=== PATIENT | male | born 1965 | race Caucasian/White ===

== ENCOUNTER → 2019-06-30 09:14 | Outpatient (BNVA) | payer BC, SELFPAY | PROVIDERS: Family Provider Nurse Practitioner Family; PCP Nurse Practitioner Family; Visit Provider Nurse Practitioner Family | DX: Z13.220 Encounter for screening for lipoid disorders (principal); H65.03 Acute serous otitis media, bilateral; K80.20 Calculus of gallbladder without cholecystitis without obstruction; M67.449 Ganglion, unspecified hand | CPT/HCPCS: 80053 ==

== ENCOUNTER → 2019-07-18 14:52 | Outpatient (BNVA) | payer BC, SELFPAY | PROVIDERS: Family Provider Nurse Practitioner Family; PCP Nurse Practitioner Family; Visit Provider Nurse Practitioner Family | DX: E78.2 Mixed hyperlipidemia (principal); R10.11 Right upper quadrant pain; R35.0 Frequency of micturition | CPT/HCPCS: 81003 ==

== ENCOUNTER → 2019-07-25 08:19 | Outpatient (BNVA) | payer BC, SELFPAY | PROVIDERS: Family Provider Nurse Practitioner Family; PCP Nurse Practitioner Family; Visit Provider Nurse Practitioner Family | DX: R10.9 Unspecified abdominal pain (principal); E78.2 Mixed hyperlipidemia | CPT/HCPCS: 80061; 80076 ==

== ENCOUNTER → 2021-07-15 08:59 | Outpatient (BNVA) | payer BC, SELFPAY | PROVIDERS: Family Provider Nurse Practitioner Family; PCP Nurse Practitioner Family; Visit Provider Nurse Practitioner Family | DX: Z20.822 Contact with and (suspected) exposure to COVID-19 (principal) | CPT/HCPCS: 87635 ==

== ENCOUNTER → 2021-10-06 10:10 | Outpatient (BNVA) | payer BC, SELFPAY | PROVIDERS: Family Provider Nurse Practitioner Family; PCP Nurse Practitioner Family; Visit Provider Nurse Practitioner Family | DX: R07.89 Other chest pain (principal); R53.83 Other fatigue; R05.3 Chronic cough | CPT/HCPCS: 80053; 84443; 85007; 85027 ==

== ENCOUNTER → 2021-11-10 11:29 | Outpatient (BNVA) | payer BC, SELFPAY | PROVIDERS: Family Provider Nurse Practitioner Family; PCP Nurse Practitioner Family; Visit Provider Nurse Practitioner Family | DX: D72.820 Lymphocytosis (symptomatic) (principal); R53.83 Other fatigue; E78.2 Mixed hyperlipidemia | CPT/HCPCS: 80053; 84443; 85025 ==

== ENCOUNTER 2021-12-03 07:11 | Day surgery (SDC) | payer BC, SELFPAY ==
[2021-12-01 13:49] VITALS: BMI 36.6
[2021-12-03 07:33] VITALS: BP 145/92; PULSE 93; RESP 18; TEMP 36.6; O2SAT 96
[2021-12-03] MEDS: sodium chloride 0.9% 1,000 ML 30 ML IV (07:43)
--- NOTE | 2021-12-03 08:25 | P.ANESASSM_ITS ---
Pre-Anesthetic Assessment Height/Weight: Height 1.83 m Weight 122.47 kg Temp Pulse Resp BP Pulse Ox 98 F 93 18 145/92 96 12/03/21 07:33 12/03/21 07:33 12/03/21 07:33 12/03/21 07:33 12/03/21 07:33 Preop Diagnosis: diagnostic Operation Date: 12/03/21 08:45 Proposed Procedures p Colonoscopy 90190/Z86.010(Not Applicable) - Mich Rodriguez MD Familial anesthetic complications: None Was Beta Rober taken within 24 hours: N/A Was Clonidine taken within 24 hours: N/A Last intake: Intake Last Liquid Date 12/02/21 Last Liquid Time 22:15 Last Solid Date 12/01/21 Last Solid Time 18:30 Social No alcohol and No tobacco Exam alert, oriented x 3, clear to auscultation bilaterally and regular rate & rhythm Airway Submandibular: within normal limits Cervical ROM: within normal limits Mallampati: Class II Dentition: chipped Comments: Comments: Missing several Metabolic Hyperlipidemia [facility] [place] Osteoarthritis/DJD Anesthetic Plan ASA status: 2 Anesthesia: MAC Medications/Allergies Home Medications Medication Instructions Recorded Confirmed Last Taken Type No Known Home Medications 10/06/21 12/01/21 Unknown History Allergies Allergy/AdvReac Type Severity Reaction Status Date / Time No Known Allergies Allergy Verified 11/18/21 08:06 Current Medications Generic Name Dose Route Start Last Admin Trade Name Freq PRN Reason Stop Dose Admin Sodium Chloride 1,000 mls @ 30 mls/hr 12/03/21 07:30 12/03/21 07:43 Sodium Chloride 0.9% IV 12/04/21 07:29 30 mls/hr .Q24H GADIEL Administration PFSH Anesthesia Medical History COVID-19 History of colon polyps Hyperlipemia, mixed Surgical History History of colonoscopy 6- 7 years ago History of tonsillectomy Family History Father Cancer Social History Smoking and tobacco status: never smoked Data Anesthesia Cardiac Studies: No Data to Display
--- NOTE | 2021-12-03 08:58 | W.PM.OPSFHP ---
Same Day Surgery H&P Indication for Procedure/HPI DATE OF PROCEDURE: December 03, 2021 CHIEF COMPLAINT/INDICATIONFOR SURGICAL PROCEDURE: colonoscopy for polyps PREOP DIAGNOSIS: diagnostic PLANNED PROCEDURE: Operation Date: 12/03/21 08:45 Proposed Procedures p Colonoscopy 37608/Z86.010(Not Applicable) - Mich Rodrigeuz MD Medications/Allergies* Home Medications Medication Instructions Recorded Confirmed Type No Known Home Medications 10/06/21 12/01/21 History Allergies/Adverse Reactions Allergy/AdvReac Type Severity Reaction Status Date / Time No Known Allergies Allergy Verified 11/18/21 08:06 Current Medications: Generic Name Dose Route Start Last Admin Trade Name Freq PRN Reason Stop Dose Admin Sodium Chloride 1,000 mls @ 30 mls/hr 12/03/21 07:30 12/03/21 07:43 Sodium Chloride 0.9% IV 12/04/21 07:29 30 mls/hr .Q24H GADIEL Administration Pertinent History/Comorbid Conditions* Medical History (Updated 11/18/21 @ 08:21 by ROSELIA Shultz) COVID-19 History of colon polyps Hyperlipemia, mixed Surgical History (Updated 11/03/21 @ 11:03 by Mich Rodriguez MD) History of colonoscopy 6- 7 years ago History of tonsillectomy Family History (Updated 06/29/19 @ 13:39 by Sandra Valencia LPN) Cancer Father Social History Smoking and tobacco status: never smoked Pertinent Exam Findings alert, oriented x 3 and regular rate & rhythm Recommendations Surgery/Procedure today Coding Level of Care Code Acute Sole Conforming Machine Operator for Jon Wells
[2021-12-03 09:27] VITALS: BP 120/81; PULSE 88; RESP 16; TEMP 36.2; O2SAT 90
[2021-12-03 09:38] VITALS: BP 91/73; PULSE 81; RESP 18; O2SAT 95
--- NOTE | 2021-12-03 14:21 | ANE.PACU2 ---
Inpatient post-anesthesia follow up: Airway intact: Yes Vital signs: Temperature 97.1 F Pulse Rate 81 Respiratory Rate 18 Blood Pressure 91/73 Pulse Oximetry 95 Oxygen Delivery Me thod Room Air Oxygen Flow Rate Fraction of Inspir ed Oxygen Hydration adequate: Yes Nausea and vomiting: No Pain level: 1 Mental status: Baseline
== END 2021-12-03 09:56 | disposition home or self-care (01) ==
PROVIDERS: PCP Nurse Practitioner Family; Visit Provider Surgery
PROC: 0DJD8ZZ Inspection of Lower Intestinal Tract, Via Natural or Artificial Opening Endoscopic (ICD-10-PCS; CPT 45378; principal; 2021-12-03 08:45)
DX: D12.2 Benign neoplasm of ascending colon (principal); D12.4 Benign neoplasm of descending colon; K57.30 Diverticulosis of large intestine without perforation or abscess without bleeding; K64.8 Other hemorrhoids; Z86.010 Personal history of colon polyps; Z86.16 Personal history of COVID-19; E78.2 Mixed hyperlipidemia
CPT/HCPCS: 45380; 88305; J2704; J7030

== ENCOUNTER 2022-01-12 12:56 | Oncology outpatient (recurring) (ONCR) | payer BC, SELFPAY ==
[2022-01-12 13:49] LABS: Basophils % 0.5 %; Eosinophils # 0.3 10^3/uL (0.0-0.8); Eosinophils % 4.5 %; Hematocrit 51.6 % (42.0-52.0); Hemoglobin 17.3 g/dL (11.7-16.6); Lymphocytes # 1.9 10^3/uL (0.8-4.8); Lymphocytes % 29.6 %; Mean Corpuscular HGB Conc 33.5 g/dL (30.0-36.0); Mean Corpuscular Hemoglobin 31.3 pg (28.0-34.0); Mean Corpuscular Volume 93.3 fl (80-94); Mean Platelet Volume 10.5 fL (7.4-10.4); Monocytes # 0.6 10^3/uL (0.2-0.9); Monocytes % 10.2 %; Neutrophils # 3.45 10^3/uL (1.8-7.7); Neutrophils % 54.7 %; Nucleated Red Blood Cells % 0 %; Platelet Count 214 10^3/cmm (130-400); Red Blood Count 5.53 10^6/uL (4.1-5.3); White Blood Count 6.3 10^3/uL (4.0-10.0)
== END 2022-01-18 23:59 | disposition home or self-care (01) ==
PROVIDERS: PCP Nurse Practitioner Family; Visit Provider Internal Medicine Hematology & Oncology
DX: D58.2 Other hemoglobinopathies (principal)
CPT/HCPCS: 85025

== ENCOUNTER 2022-02-16 11:40 | Outpatient (CLI) | payer BC, SELFPAY | END 2022-02-16 11:41 | disposition home or self-care (01) | LOC: SLEEP 02-17 10:59 | PROVIDERS: PCP Nurse Practitioner Family; Visit Provider Internal Medicine Hematology & Oncology | DX: D58.2 Other hemoglobinopathies (principal); R53.83 Other fatigue | CPT/HCPCS: G0399 ==

== ENCOUNTER 2022-03-09 11:43 | Oncology outpatient (recurring) (ONCR) | payer BC, SELFPAY | END 2022-03-20 23:59 | disposition home or self-care (01) | PROVIDERS: PCP Nurse Practitioner Family; Visit Provider Internal Medicine Hematology & Oncology | DX: D75.1 Secondary polycythemia (principal) | CPT/HCPCS: 36415; 85025 ==

== ENCOUNTER 2022-04-21 10:49 | Oncology outpatient (recurring) (ONCR) | payer BC, SELFPAY ==
[2022-04-21 11:18] LABS: Basophils # 0.1 10^3/uL (0.0-0.1); Basophils % 0.8 %; Eosinophils # 0.3 10^3/uL (0.0-0.8); Eosinophils % 3.4 %; Hematocrit 51.9 % (42.0-52.0); Hemoglobin 17.5 g/dL (11.7-16.6); Lymphocytes # 2.1 10^3/uL (0.8-4.8); Lymphocytes % 24.7 %; Mean Corpuscular HGB Conc 33.7 g/dL (30.0-36.0); Mean Corpuscular Hemoglobin 31.2 pg (28.0-34.0); Mean Corpuscular Volume 92.5 fl (80-94); Mean Platelet Volume 10.4 fL (7.4-10.4); Monocytes # 1.1 10^3/uL (0.2-0.9); Monocytes % 12.2 %; Neutrophils # 5.06 10^3/uL (1.8-7.7); Neutrophils % 58.4 %; Nucleated Red Blood Cells % 0 %; Platelet Count 216 10^3/cmm (130-400); Red Blood Count 5.61 10^6/uL (4.1-5.3); Red Cell Distribution Width 11.9 % (12.1-15.1); White Blood Count 8.6 10^3/uL (4.0-10.0)
== END 2022-05-20 23:59 | disposition home or self-care (01) ==
PROVIDERS: PCP Nurse Practitioner Family; Visit Provider Internal Medicine Hematology & Oncology
DX: D75.1 Secondary polycythemia (principal)
CPT/HCPCS: 85025

== ENCOUNTER 2022-06-19 08:30 | Oncology outpatient (recurring) (ONCR) | payer BC, SELFPAY ==
[2022-05-21 12:48] LABS: Basophils # 0.1 10^3/uL (0.0-0.1); Basophils % 0.6 %; Eosinophils # 0.3 10^3/uL (0.0-0.8); Eosinophils % 3.2 %; Hemoglobin 17.2 g/dL (11.7-16.6); Lymphocytes # 2.2 10^3/uL (0.8-4.8); Mean Corpuscular HGB Conc 33.7 g/dL (30.0-36.0); Mean Corpuscular Hemoglobin 31.3 pg (28.0-34.0); Mean Corpuscular Volume 92.9 fl (80-94); Mean Platelet Volume 10.3 fL (7.4-10.4); Monocytes % 12.8 %; Neutrophils # 4.34 10^3/uL (1.8-7.7); Nucleated Red Blood Cells % 0 %; Platelet Count 199 10^3/cmm (130-400); Red Blood Count 5.49 10^6/uL (4.1-5.3); Red Cell Distribution Width 11.8 % (12.1-15.1); White Blood Count 7.9 10^3/uL (4.0-10.0)
[2022-06-19 08:58] LABS: Basophils # 0.1 10^3/uL (0.0-0.1); Eosinophils # 0.5 10^3/uL (0.0-0.8); Eosinophils % 6.5 %; Hemoglobin 17.3 g/dL (11.7-16.6); Lymphocytes # 2.3 10^3/uL (0.8-4.8); Lymphocytes % 33.7 %; Mean Corpuscular HGB Conc 33.3 g/dL (30.0-36.0); Mean Corpuscular Hemoglobin 30.9 pg (28.0-34.0); Mean Platelet Volume 9.9 fL (7.4-10.4); Monocytes % 14.2 %; Neutrophils # 3.03 10^3/uL (1.8-7.7); Neutrophils % 44.2 %; Nucleated Red Blood Cells % 0 %; Platelet Count 216 10^3/cmm (130-400); Red Blood Count 5.59 10^6/uL (4.1-5.3); Red Cell Distribution Width 11.8 % (12.1-15.1); White Blood Count 6.9 10^3/uL (4.0-10.0)
[2022-07-03 00:04] LABS: CALR Exon 9 Mutation NOT DETECTED (NOT DETECTED); CSF3R Exon 14/17 Mutation NOT DETECTED (NOT DETECTED); JAK2 Exon 12 Mutation NOT DETECTED (NOT DETECTED); JAK2 V617 Block Specimen ID NG; JAK2 V617 Clinical Indication NG; JAK2 V617 Mutation NOT DETECTED (NOT DETECTED); JAK2 V617 Specimen Source NG; MPL Exon 12 Mutation NOT DETECTED (NOT DETECTED)
== END 2022-06-20 23:59 | disposition home or self-care (01) ==
PROVIDERS: PCP Nurse Practitioner Family; Visit Provider Internal Medicine Hematology & Oncology
DX: D75.1 Secondary polycythemia (principal)
CPT/HCPCS: 36415; 81219; 81270; 81339; 81403; 81479; 85025

== ENCOUNTER 2022-07-09 07:50 | Oncology outpatient (recurring) (ONCR) | payer BC, SELFPAY ==
[2022-07-09 08:10] LABS: Basophils # 0.1 10^3/uL (0.0-0.1); Basophils % 0.9 %; Eosinophils # 0.3 10^3/uL (0.0-0.8); Eosinophils % 4.9 %; Hematocrit 53.7 % (42.0-52.0); Hemoglobin 17.9 g/dL (11.7-16.6); Lymphocytes # 1.7 10^3/uL (0.8-4.8); Lymphocytes % 32.5 %; Mean Corpuscular HGB Conc 33.3 g/dL (30.0-36.0); Mean Corpuscular Hemoglobin 30.8 pg (28.0-34.0); Mean Corpuscular Volume 92.3 fl (80-94); Mean Platelet Volume 10.3 fL (7.4-10.4); Monocytes # 0.7 10^3/uL (0.2-0.9); Monocytes % 13.2 %; Neutrophils # 2.54 10^3/uL (1.8-7.7); Neutrophils % 48.1 %; Nucleated Red Blood Cells % 0 %; Platelet Count 211 10^3/cmm (130-400); Red Blood Count 5.82 10^6/uL (4.1-5.3); Red Cell Distribution Width 11.9 % (12.1-15.1); White Blood Count 5.3 10^3/uL (4.0-10.0)
== END 2022-07-21 23:59 | disposition home or self-care (01) ==
LOC: ONCMED 07:51
PROVIDERS: PCP Nurse Practitioner Family; Visit Provider Internal Medicine Hematology & Oncology
DX: D75.1 Secondary polycythemia (principal); G47.33 Obstructive sleep apnea (adult) (pediatric); Z86.16 Personal history of COVID-19; Z79.82 Long term (current) use of aspirin
CPT/HCPCS: 36415; 85025

== ENCOUNTER → 2023-03-30 09:40 | Outpatient (BNVA) | payer BC, SELFPAY | PROVIDERS: PCP Nurse Practitioner Family; Visit Provider Nurse Practitioner Family | DX: D75.1 Secondary polycythemia (principal); M25.50 Pain in unspecified joint; M79.673 Pain in unspecified foot | CPT/HCPCS: 80048; 84550; 85025; 85651; 86003; 86008; 86140 ==

== ENCOUNTER → 2024-04-04 08:52 | Outpatient (BNVA) | payer BC, SELFPAY | PROVIDERS: PCP Nurse Practitioner Family; Visit Provider Nurse Practitioner Family | DX: I10 Essential (primary) hypertension (principal); D75.1 Secondary polycythemia | CPT/HCPCS: 80053; 83550; 85025 ==

== ENCOUNTER 2024-06-19 11:50 | Inpatient (IN) | payer BC, SELFPAY ==
[2024-06-19] VITALS (18 sets, daily range): BP systolic 146–175; BP diastolic 82–99; PULSE 63–93; RESP 14–19; TEMP 36.6–36.7; O2SAT 92–96; BMI 35.9; BMI 36.6
--- NOTE | 2024-06-19 11:51 | XR_ITS ---
WS: [id number] Portable AP upright chest, 06/19/2024 Clinical Data: cp Comparison: None. Findings: No nodules, masses or effusions are seen. The heart is normal. The pulmonary vascularity is not increased. No pneumonia or pneumothorax is seen. The aortic arch and descending thoracic aorta a re tortuous. Monitor leads are on the chest wall. XR/XR chest 1V portable [id number] Impression: Atherosclerosis.
--- NOTE | 2024-06-19 11:53 | ECG_ITS ---
[facility] Test Date: 2024-06-19 Pat Name: Ramona Gee Department: Room: Gender: Male Speech Pathology Assistant: : 1965 Requested By: Jose Luis Raya Order Number: [id number] Nalini MD: Mynor Pagan M.D. Measurements Intervals [place] Rate: 87 P: 57 WI: 182 QRS: 41 QRSD: 94 T: 15 QT: 322 QTc: 388 Interpretive Statements SINUS RHYTHM No previous ECG available for comparison Electronically Signed On 06-19-2024 16:34:30 HEALTHCARE SCIENCE SPECIALIST by Mynor Pagan M.D. [id number] f
--- NOTE | 2024-06-19 11:54 | W.ED.CHESTPA ---
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 Denies any history of heart disease Associated symptoms: Reports nausea; Deny abdominal pain, dyspnea, fever(s) or vomiting Related Data Home Medications Medication Instructions Recorded Confirmed acetaminophen 325 mg tablet 325 mg PO QID PRN Pain 04/21/22 06/19/24 (Tylenol) ibuprofen 200 mg tablet 200 mg PO Q6H PRN Pain 04/21/22 06/19/24 Allergies Allergy/AdvReac Type Severity Reaction Status Date / Time No Known Allergies Allergy Verified 03/30/23 09:23 Review of Systems Const: Denies: fever(s), chills, body aches or change in appetite ENMT: Denies: throat pain or dental pain Card: Reports: chest pain Resp: Denies: dyspnea GI: Reports: nausea; Denies: abdominal pain, vomiting or diarrhea Musc: Denies: neck pain or back pain Skin/Breast: Denies: rash Neuro: Denies: headache(s) PFS ED PFSH: Medical History Polycythemia History of colon polyps COVID-19 Hyperlipemia, mixed Surgical History History of colonoscopy (12/03/21) 6- 7 years ago History of tonsillectomy Family History Father Cancer Lung disease Grandmother Hypertension Other Hyperlipidemia Denies family history of Diabetes CAD (coronary artery disease) Clotting disorder Dementia Psychiatric illness Chronic kidney disease (CKD) Suicide Anesthesia complication Bleeding disorder Stroke Social History Smoking and tobacco/nicotine status: never used tobacco/nicotine Alcohol intake: never Substance/Drug Use: never Adopted: No Lives independently: Yes Household members: spouse and children Housing: House Marital status: Physical Exam Const: COMMON NORMALS: patient oriented x3 HENMT: COMMON NORMALS: normocephalic and atraumatic HEAD & SCALP: normocephalic and atraumatic Eye: COMMON NORMALS: Equal, round and reactive pupils present and EOMs intact bilaterally PUPIL: Yes Equal, round and reactive pupils present Neck/C-Spine: COMMON NORMALS: full ROM and supple Chest: COMMONS NORMALS: normal inspection of the chest Resp: COMMON NORMALS: normal respiratory effort and clear to auscultation bilaterally AUSCULTATION: clear to auscultation bilaterally Cardio: COMMON NORMALS: regular rate, regular rhythm and No murmurs present (Cardio) RATE: regular rate RHYTHM: regular rhythm GI: COMMON NORMALS: Normal to inspection, nondistended, normoactive bowel sounds present, Soft to palpation, non-tender and no masses PALPATION: Yes Soft to palpation Extremity: COMMON NORMALS: normal to inspection and full ROM Neuro: COMMON NORMALS: patient oriented x3, moves all extremities and no focal motor deficits Psych: COMMON NORMALS: mental status grossly normal, Normal thought process present and cooperative THOUGHT PROCESS: Normal thought process present Skin: COMMON NORMALS: no rashes or lesions noted and no wounds GENERAL SKIN EXAM: no rashes or lesions noted Course Vital Signs: Vital signs: Vital Signs Temperature 97.8 F 06/19/24 11:51 Pulse Rate 82 06/19/24 14:15 Respiratory Rate 15 06/19/24 14:15 Blood Pressure 158/92 06/19/24 14:15 Pulse Oximetry 94 06/19/24 14:15 Oxygen Delivery Me thod Room Air 06/19/24 14:00 MDM - Chest Pain Medical Decision Making Patient presents here with chest pain does have an elevated 2-hour troponin consistent with NSTEMI EKG shows no ST elevation is had no pain here spoke to the hospitalist along with police shift commander will admit at this time Medical Records I reviewed the patient's medical records. Lab Data I reviewed the patient's lab results. 06/19/24 11:00 06/19/24 11:00 Radiology Impressions Chest X-Ray 06/19/24 11:51 Impression: Atherosclerosis. Laboratory Results WBC 6.89 10^3/uL (3.29-11.43) 06/19/24 11:00 RBC 5.73 10^6/uL (3.85-5.65) H 06/19/24 11:00 Hgb 17.50 g/dL (11.27-16.99) H 06/19/24 11:00 Hct 51.7 % (37-53) 06/19/24 11:00 MCV 90.2 fl (82-101) 06/19/24 11:00 MCH 30.5 pg (27-33) 06/19/24 11:00 MCHC 33.8 g/dL (30-55) 06/19/24 11:00 RDW 12.0 % (12.1-15.1) L 06/19/24 11:00 Plt Count 200 10^3/cmm (157-399) 06/19/24 11:00 MPV 10.8 fL (7.4-10.4) H 06/19/24 11:00 Neut % (Auto) 49.6 % 06/19/24 11:00 Lymph % (Auto) 33.7 % 06/19/24 11:00 [place] % (Auto) 13.2 % 06/19/24 11:00 Eos % (Auto) 3.0 % 06/19/24 11:00 Baso % (Auto) 0.4 % 06/19/24 11:00 Neut # (Auto) 3.41 10^3/uL (1.8-7.7) 06/19/24 11:00 Lymph # (Auto) 2.3 10^3/uL (0.8-4.8) 06/19/24 11:00 [place] # (Auto) 0.9 10^3/uL (0.2-0.9) 06/19/24 11:00 Eos # (Auto) 0.2 10^3/uL (0.0-0.8) 06/19/24 11:00 Baso # (Auto) 0.0 10^3/uL (0.0-0.1) 06/19/24 11:00 Nucleated RBC % (auto) 0 % 06/19/24 11:00 Nucleated RBCs # 0.0 /100WBC 06/19/24 11:00 Sodium 139 mmol/L (136-145) 06/19/24 11:00 Potassium 3.9 mmol/L (3.5-5.1) 06/19/24 11:00 Chloride 103 mmol/L (98-107) 06/19/24 11:00 Carbon Dioxide 22 mmol/L (22-29) 06/19/24 11:00 Anion Gap 17.9 (5-19) 06/19/24 11:00 BUN 13 mg/dL (6-20) 06/19/24 11:00 Creatinine 1.0 mg/dL (0.7-1.2) 06/19/24 11:00 GFR Calculation 76.5 mL/min (90-130) L 06/19/24 11:00 Glucose 124 mg/dL (65-115) H 06/19/24 11:00 Calculated Osmolality 290 mOsm/kg (285-295) 06/19/24 11:00 Calcium 9.6 mg/dL (8.5-10.5) 06/19/24 11:00 Total Bilirubin 0.6 mg/dL (0.15-1.2) 06/19/24 11:00 AST 41 U/L (0-40) H 06/19/24 11:00 ALT 57 U/L (0-41) H 06/19/24 11:00 Alkaline Phosphatase 90 U/L (40-130) 06/19/24 11:00 Troponin T Baseline 12 ng/L (0-15) 06/19/24 11:00 Troponin T 120 Minute 54.03 ng/L (0-15) H 06/19/24 13:15 Delta Troponin T 42.03 ABS# (0-10) H* 06/19/24 13:15 Total Protein 7.5 g/dL (6.6-8.7) 06/19/24 11:00 Albumin 4.5 g/dL (3.5-5.2) 06/19/24 11:00 Globulin 3.0 g/dL (1.3-4.6) 06/19/24 11:00 Lipase 17 U/L (13-60) 06/19/24 11:00 All radiology interpretation(s) finalized by discharge EKG Data EKG 1: I personally reviewed and interpreted this EKG as follows: EKG interpretation date: 06/19/24 EKG interpretation time: 11:53 Interpretation: nsr hr [address] elevation qrs 94 qtc 366 EKG 2: I personally reviewed and interpreted this EKG as follows: EKG interpretation date: 06/19/24 EKG interpretation time: 13:49 Interpretation: nsr hr [address] or t wave abnormalities qrs 93 qtc 381 Discharge Plan Discharge Patient Disposition: Admitted As Inpatient Clinical Impression: Non-ST elevation ND (NSTEMI) Condition: Stable Prescriptions: No Action acetaminophen [Tylenol] 325 mg tablet 325 mg PO QID PRN (Reason: Pain) ibuprofen 200 mg tablet 200 mg PO Q6H PRN (Reason: Pain) Referrals: Romana Shepherd FNP [Primary Care Provider] - Coding Level of Care Code ED Stock Digger for Jon Wells
[2024-06-19 12:05] LABS: Basophils % 0.4 %; Eosinophils # 0.2 10^3/uL (0.0-0.8); Hematocrit 51.7 % (37-53); Lymphocytes # 2.3 10^3/uL (0.8-4.8); Lymphocytes % 33.7 %; Mean Corpuscular HGB Conc 33.8 g/dL (30-55); Mean Corpuscular Hemoglobin 30.5 pg (27-33); Mean Corpuscular Volume 90.2 fl (82-101); Mean Platelet Volume 10.8 fL (7.4-10.4); Monocytes # 0.9 10^3/uL (0.2-0.9); Monocytes % 13.2 %; Neutrophils # 3.41 10^3/uL (1.8-7.7); Neutrophils % 49.6 %; Nucleated Red Blood Cells % 0 %; Platelet Count 200 10^3/cmm (157-399); Red Blood Count 5.73 10^6/uL (3.85-5.65); White Blood Count 6.89 10^3/uL (3.29-11.43)
--- NOTE | 2024-06-19 12:15 | PC.PHAR ---
Pt states he does not take any prescription medications, only the occasional otc pain relievers and maybe Tums.
[2024-06-19 12:25] LABS: Alanine Aminotransferase 57 U/L (0-41); Albumin Level 4.5 g/dL (3.5-5.2); Alkaline Phosphatase 90 U/L (40-130); Anion Gap 17.9 (5-19); Aspartate Amino Transferase 41 U/L (0-40); Blood Urea Nitrogen 13 mg/dL (6-20); Calcium 9.6 mg/dL (8.5-10.5); Carbon Dioxide 22 mmol/L (22-29); Chloride 103 mmol/L (98-107); Creatinine Clr Calc Pharmacy 106.4709; Glomerular Filtration Rate 76.5 mL/min (90-130); Glucose 124 mg/dL (65-115); Lipase 17 U/L (13-60); Osmolality Calculated 290 mOsm/kg (285-295); Potassium 3.9 mmol/L (3.5-5.1); Sodium 139 mmol/L (136-145); Total Bilirubin 0.6 mg/dL (0.15-1.2); Total Protein 7.5 g/dL (6.6-8.7); Troponin(5th) Baseline 12 ng/L (0-15)
[2024-06-19 13:40] LABS: Troponin 5 2HR 54.03 ng/L (0-15)
[2024-06-19 13:47] LABS: Troponin 5 2HR Delta 42.03 ABS# (0-10)
--- NOTE | 2024-06-19 13:49 | ECG_ITS ---
[facility] Pat Name: Ramona Gee Department: Room: Gender: Male Mail Order Biller: : 1965 Requested By: Jose Luis Raya Order Number: [id number] Nalini MD: Mynor Pagan M.D. Measurements Intervals [place] Rate: 81 P: 49 SD: 187 QRS: 26 QRSD: 93 T: 29 QT: 344 QTc: 400 Interpretive Statements SINUS RHYTHM Compared to ECG 06/19/2024 11:53:14 No significant changes Electronically Signed On 06-19-2024 16:50:45 ENDODONTICS DENTIST by Mynor Pagan M.D. [id number]
[2024-06-19] MEDS: enoxaparin 120 mg/0.8 mL Syringe SUBCUT (13:53)
--- NOTE | 2024-06-19 14:27 | PC.NURSE ---
Dr. Dorota olivered pt to have water.
[2024-06-19] MEDS: clopidogrel 300 mg Tablet PO (16:19)
--- NOTE | 2024-06-19 16:30 | USCV_ITS ---
Ramona Gee Age: 58 Gender: M : 1965 Exam Date: 06/19/2024 17:18 Ordering Phys: Terrie Sutherland MD Technologist: CT [place]am [place] [facility] [place] Indication: cp BP: 146 / 88 HR: 70 Rhythm: Sinus Technical Quality: Adequate MEASUREMENTS (Male / Female) Normal Values 2D ECHO LVOT Diameter 2.3 cm LV Ejection Fraction MOD 4C 51.6 % LV Ejection Fraction MOD 2C 58.4 % LV Ejection Fraction 2C AL 61.4 % LA Diameter 3.4 cm RA Systolic Volume 4C AL 47.0 ml RA Systolic Volume 4C MOD 44.0 ml LA Sys Volume AL 44.6 cm cubed LA Sys Volume Index AL 17.8 cm cubed/m squared Aorta at Sinotubular Diameter 2.9 cm M-MODE LA Ao Ratio MM 1.1 AV Cusp Separation MM 2.2 cm DOPPLER AV Peak Velocity 164.0 cm/s LVOT Peak Velocity 108.0 cm/s AV Area Cont Eq vti 3.2 cm squared AV Area Cont Eq pk 2.6 cm squared MV Peak Velocity 85.0 cm/s MV Area PHT 3.2 cm squared Mitral E to A Ratio 1.3 TR Peak Velocity 167.0 cm/s TR Peak Gradient 11.2 mmHg PV Peak Velocity 96.0 cm/s FINDINGS Left Ventricle Normal left ventricular size and systolic function, EF 55%. No regional wall motion abnormalities. Grade I/IV diastolic dysfunction (abnormal relaxation filling pattern), normal to mildly elevated filling pressures. Right Ventricle The right ventricle is normal in size and function. Right Atrium The right atrium is normal in size. Left Atrium The left atrium is normal in size. Mitral Valve No gross abnormalities noted Aortic Valve Thickened aortic valve. Trace aortic valve regurgitation. Tricuspid Valve Trace tricuspid valve regurgitation. Estimated pulmonary artery peak systolic pressure within normal limits Pulmonic Valve Pulmonic valve not well visualized. Pericardium Normal pericardium without effusion. Aorta Normal ascending aorta dimension. IVC Inferior vena cava not visualized. CONCLUSIONS Normal left ventricular size and systolic function, EF 55%. No regional wall motion abnormalities. Grade I/IV diastolic dysfunction (abnormal relaxation filling pattern), normal to mildly elevated filling pressures. Thickened aortic valve. Trace aortic valve regurgitation. Trace tricuspid valve regurgitation. Estimated pulmonary artery peak systolic pressure within normal limits There is no pericardial effusion. There are no intracardiac masses. No similar previous studies are available for comparison Dr Kathy Helton MD FACC (Electronically Signed) Final Date: 20 June 2024 00:59 S
--- NOTE | 2024-06-19 16:44 | P.CONIM_ITS ---
<Statement entered by Mynor Paagn M.D - 06/19/24 20:42> Patient was evaluated and cared for in conjunction with an advanced practice practitioner. I personally examined the patient and reviewed the chart and all pertinent data including imaging, telemetry, and laboratory results. I discussed the patient in detail with the advanced practice practitioner. Please see their note for complete consult note, results and agreed upon plan of care for the patient. Briefly patient has presented with typical severe chest pain symptoms and has significant troponin elevation consistent with NSTEMI. Currently chest pain free. EKG not showing acute st t wave changes. GENERAL: Patient is alert and oriented HEART: Regular S1 and S2 LUNGS: Clear to auscultation bilaterally EXTREMITIES: Lower extremities with 2+ edema Assessment and Plan (1) Chest pressure: (2) Non-ST elevation [place] (NSTEMI) (3) Hyperlipemia, mixed (4) SHRAVAN (obstructive sleep apnea) Patient has presented with NSTEMI. We will proceed with coronary angiogram with possible PCI tomorrow. NPO past midnight Continue aspirin and plavix. Was started on anticoagulation Echo ordered Thank you for involving us with care of this patient. We will continue to follow. Please call with questions. Providers/Reason For Consult 2 Consulting Physician/Specialty*: Dr. Pagan Reason for Consult*: NSTEMI Requesting Physician: Dr. Sutherland Attending Physician: Terrie Sutherland MD Primary Care Provider: ROSELIA Cabrera History of Present Illness History of Present Illness This is a very pleasant 58-year-old gentleman who tells me he does not have much of a medical history. States he has been told he has had high cholesterol in the past. He denies any high blood pressure although he states he does not go to the doctor very often. Blood pressure at this time is in the 160s. Denies history of any significant heart disease.He has a family hx of heart disease including his father who had multiple stents in his 60s. Apparently has a history of sleep apnea as well. 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 He states there was some diaphoresis with this and some nausea as well. He took a nitro with an adult aspirin. He did rest as well and the chest pain resolved. He states it took about 30 minutes to resolve. At the time of my assessment he denies any chest pain or shortness of breath. EKG showed sinus rhythm without acute ST or T wave abnormalities. Baseline troponin was normal at 12. This did rise to 54. We are waiting for the 6-hour troponin. Of note patient does have a history of alpha gal syndrome in which he states he has a severe reaction to this. In the ED he was given Lovenox and loaded with 300 mg of Plavix. Current blood pressure is elevated in the 160s on my assessment. Review of Systems 2 Narrative: Consitutional: denies fever, chills, body aches, or changes in appetite, denies abnormal weight loss Eyes: Denies changes in vision Card: Denies chest pain, palpitations, irregular heart rhythm, edema, syncope, shortness of breath, orthopnea, leg pain with exertion Resp: Denies shortness of breath, denies hemoptysis, denies cough GI: denies abdominal pain, denies nausea or voimting, denies blood in stool : denies blood in urine, denies dysuria Musc: Denies extremity pain, denies limited range of motion or recent injury Skin: Denies rash, lesions, or wounds, denies changes to skin color Neuro: Denies nubmness in extremities, h/a, s/s of stroke Maximo: Denies easy bruiding/bleeding All: Reports hx of alpha gal syndrome Medications/Allergies Home Medications Medication Instructions Recorded Confirmed Last Taken Type acetaminophen 325 mg tablet 325 mg PO QID PRN Pain 04/21/22 06/19/24 Unknown History (Tylenol) ibuprofen 200 mg tablet 200 mg PO Q6H PRN Pain 04/21/22 06/19/24 Unknown History Allergies Allergy/AdvReac Type Severity Reaction Status Date / Time Alpha-Gal Allergy ALGY-Swell Verified 06/19/24 15:34 (Vipodeufq-Kekbh-0,3-Gala Lip/Tongue/Throat PFSH Acute 2 PFSH: Medical History Polycythemia History of colon polyps COVID-19 Hyperlipemia, mixed Surgical History History of colonoscopy (12/03/21) 6- 7 years ago History of tonsillectomy Family History Father Cancer Lung disease Grandmother Hypertension Other Hyperlipidemia Denies family history of Diabetes CAD (coronary artery disease) Clotting disorder Dementia Psychiatric illness Chronic kidney disease (CKD) Suicide Anesthesia complication Bleeding disorder Stroke Social History Smoking and tobacco/nicotine status: never used tobacco/nicotine Alcohol intake: never Substance/Drug Use: never Adopted: No Lives independently: Yes Household members: spouse and children Housing: House Marital status: Vitals/I&O/Wt Last Vital Signs Temp 97.9 F 06/19/24 16:27 Pulse 84 06/19/24 16:27 Resp 16 06/19/24 16:27 BP 146/88 06/19/24 16:27 Pulse Ox 96 06/19/24 16:27 O2 Del Method Room Air 06/19/24 16:27 Weight last 48 hrs Weight 270 lb Weight 265 lb Physical Exam 2 Narrative: General: No apparent distress, healthy appearing, well nourished HENMT: normoceophalic Eye: PERRL Muskuloskeletal: Full ROM Lymphatic: no lymphedema noted Respiratory: Normal respiratory effort, clear to auscultation bilaterally throughout all lung alejo, no use of accessory muscles Cardio: No JVD, regular rate, regular rhythm, S1 S2 normal, no murmurs, peripheral pulses 2+ throughout GI: obese Extremities: Full ROM, normal, normal capillary refill, no cyanosis or edema Neuro: Alert and oriented x4, no focal motor deficits Psych: Affect normal, denies suicidal ideation, mental status grossly normal Skin: No rashes or lesions noted, no wounds Data 06/19/24 11:00 06/19/24 11:00 A&P Assessment and plan (1) Chest pressure: (2) Non-ST elevation AZ (NSTEMI): (3) Hyperlipemia, mixed: (4) SHRAVAN (obstructive sleep apnea): Plan At this time patient is chest pain-free. He came in with signs and symptoms of typical unstable angina. His troponin was significantly elevated at 2 hours. EKG with no acute ST or T wave abnormalities. At this time our recommendation is to proceed with a left heart cath. The plan is to do this tomorrow morning around 10. Due to his high blood pressure will go ahead and add metoprolol 24 mg BID. Echo has been ordered. Patient getting a lipid panel. Most likely will need statin drug. Will continue to monitor for EKG changes and abnormal symptoms. Thank you, for allowing us to care for this very pleasant gentleman. Consult Attestations 2 Medical Necessity Statement: Patient stay expected to cross 2 midnights due to NSTEMI with unstable angina. Coding Level of Care Code Acute Code for Chg Fwd Diagnoses Chest pressure R07.89 Non-ST elevation [place] (NSTEMI) I21.4 Hyperlipemia, mixed E78.2 SHRAVAN (obstructive sleep apnea) G47.33
[2024-06-19 17:18] LABS: Chol HDL Ratio 5.48 mg/dL (1.0-5.00); Cholesterol 181 mg/dL (0-200); HDL Cholesterol 33 mg/dL (60-100); LDL Cholesterol Calculated 90 mg/dL (50-129); LDL HDL Ratio 2.73 RATIO (0.00-3.22); Thyroid Stimulating Hormone 2.79 uIU/mL (0.27-4.20); Triglycerides 288 mg/dL (0-150)
[2024-06-19 17:27] LABS: Troponin 5 6HR 326.1 ng/L (0-15); Troponin 5 6HR Delta 314.1 ng/L (0-12)
[2024-06-19] MEDS: pantoprazole 40 mg SDV IVP (17:27)
[2024-06-19] MEDS: aspirin 81 mg EC Tablet PO (17:28)
--- NOTE | 2024-06-19 17:51 | ECG_ITS ---
[facility] Test Date: 2024-06-19 Pat Name: Ramona Gee Department: Room: 102 Gender: Male Program Engagement Director: : 1965 Requested By: Jose Luis Raya Order Number: [id number] Nalini MD: Kathy Helton M.D. Measurements Intervals [place] Rate: 70 P: 43 VT: 188 QRS: 21 QRSD: 100 T: 29 QT: 354 QTc: 382 Interpretive Statements SINUS RHYTHM Compared to ECG 06/19/2024 13:49:59 No significant changes Electronically Signed On 06-20-2024 17:51:[address] by Kathy Helton M.D. [id number]
[2024-06-19] MEDS: sodium chloride 0.9% 1,000 ML 75 ML IV (18:12)
--- NOTE | 2024-06-19 19:03 | P.HP_ITS ---
Providers/Chief Complaint 2 Admitting Physician: Terrie Sutherland MD Primary Care Provider: ROSELIA Cabrera Chief Complaint: chest pain History of Present Illness Ramoan Gee is a 58 year old male without significant past medical history other than [place] spot fever 2011, alpha gal deficiency 2021, no significant past cardiac history however stating father had a heart attack age 60 coming in with chief complaint of chest pain. Patient is stating that he ate his breakfast 7 AM, he started working in his wood shop, around 10 AM he started experiencing left-sided chest pain which was radiating towards his back, he would describe it as pressure sensation, lasted for about 30 minutes, it was associated with diaphoresis and nausea but no vomiting. No recurrence of chest pain since then however patient stating that he had little bit of chest pain when he came in room 102 otherwise no other hemodynamic stability or significant recurrence of chest pain. At the time of my evaluation he is chest pain-free. Significant delta troponin cardiology has seen him already, plan for angiogram in the morning around 10 AM. Patient does not take any medication at home, stating that since he started alpha gal modified diet he has been feeling much better he is not experiencing joint pain& mental fog has improved Hemodynamically stable chest pain-free at the time of my evaluation Patient has retired from [email or web address] related profession, takes pride in living a healthy life, does not smoke or drink alcohol on daily basis Review of Systems 2 Const: Denies: fever(s) Eyes: Denies: change in vision ENMT: Denies: throat pain Card: Reports: chest pain Resp: Denies: dyspnea GI: Denies: abdominal pain : Denies: flank pain Medications/Allergies Home Medications Medication Instructions Recorded Confirmed Last Taken Type acetaminophen 325 mg tablet 325 mg PO QID PRN Pain 04/21/22 06/19/24 Unknown History (Tylenol) ibuprofen 200 mg tablet 200 mg PO Q6H PRN Pain 04/21/22 06/19/24 Unknown History Allergies Allergy/AdvReac Type Severity Reaction Status Date / Time Alpha-Gal Allergy CHRISTIANOY-Swell Verified 06/19/24 15:34 (Xwaicyhwe-Mlwol-6,3-Gala Lip/Tongue/Throat PFSH Acute 2 PFSH: Medical History Polycythemia History of colon polyps COVID-19 Hyperlipemia, mixed Surgical History History of colonoscopy (12/03/21) 6- 7 years ago History of tonsillectomy Family History Father Cancer Lung disease Grandmother Hypertension Other Hyperlipidemia Denies family history of Diabetes CAD (coronary artery disease) Clotting disorder Dementia Psychiatric illness Chronic kidney disease (CKD) Suicide Anesthesia complication Bleeding disorder Stroke Social History Smoking and tobacco/nicotine status: never used tobacco/nicotine Alcohol intake: never Substance/Drug Use: never Adopted: No Lives independently: Yes Household members: spouse and children Housing: House Marital status: Vitals/I&O/Wt Last Vital Signs Temp 97.9 F 06/19/24 16:27 Pulse 77 06/19/24 16:56 Resp 16 06/19/24 16:27 BP 146/88 06/19/24 16:27 Pulse Ox 95 06/19/24 18:10 O2 Del Method Room Air 06/19/24 18:10 Weight last 48 hrs Weight 122.47 kg Weight 120.202 kg Physical Exam 2 Narrative: Patient is chest pain free Obese male GCS 15 Nonfocal neuroexam Chest pain-free S1, S2 Hemodynamically stable Abdomen distended nontender No sign of heart failure Pleasant and cooperative Data 06/19/24 11:00 06/19/24 11:00 A&P Assessment and plan (1) Non-ST elevation LA (NSTEMI): (2) Hyperlipemia, mixed: (3) Polycythemia: (4) SHRAVAN (obstructive sleep apnea): Plan Non-STEMI Loaded with aspirin and Plavix Continue aspirin and Plavix maintenance dose Currently on Lovenox therapeutic regimen Started IV fluids to profile and contrast-induced nephropathy Patient is not diabetic check A1c and lipid panel Requested echo N.p.o. after midnight Plan for angiogram in the morning Currently chest pain-free Will use morphine and nitroglycerin on alternating basis Full code DVT prophylaxis COVID therapeutic Lovenox Hypertension: Will continue metoprolol added by cardiology today,, will need optimization of antihypertensive regimen for discharge Once he starts eating let [employer] know about alpha gal deficiency please SHRAVAN: Requested CPAP Patient is physically active Attestations 2 Medical Necessity Statement*: More than 2 midnights anticipated for management of non-STEMI Diagnoses Non-ST elevation LA (NSTEMI) I21.4 Hyperlipemia, mixed E78.2 Polycythemia D75.1 SHRAVAN (obstructive sleep apnea) G47.33
[2024-06-19 19:38] LABS: Estmated Average Glucose 134; Hemoglobin A1C 6.3 % (4.0-6.0)
[2024-06-19 20:29] LABS: D Dimer 0.29 ug/mLFEU (0-0.59)
[2024-06-19 20:37] LABS: Chol HDL Ratio 5.45 mg/dL (1.0-5.00); Cholesterol 169 mg/dL (0-200); HDL Cholesterol 31 mg/dL (60-100); LDL Cholesterol Calculated 72 mg/dL (50-129); LDL HDL Ratio 2.32 RATIO (0.00-3.22); Triglycerides 329 mg/dL (0-150)
[2024-06-19] MEDS: atorvastatin 40 mg Tablet 80 MG PO (20:43)
[2024-06-19] MEDS: lisinopril 10 mg Tablet PO (20:43)
[2024-06-19] MEDS: metoprolol tartrate 25 mg Tablet PO (20:43)
[2024-06-19 20:57] LABS: Estmated Average Glucose 134; Hemoglobin A1C 6.3 % (4.0-6.0)
[2024-06-20] VITALS (11 sets, daily range): BP systolic 101–148; BP diastolic 57–82; PULSE 57–98; RESP 12–25; TEMP 36.6–37.1; O2SAT 93–96; BMI 35.8
[2024-06-20 00:14] LABS: Vitamin B12 319 pg/mL (232-1245)
[2024-06-20 03:42] LABS: Basophils # 0.1 10^3/uL (0.0-0.1); Basophils % 0.7 %; Eosinophils # 0.2 10^3/uL (0.0-0.8); Hematocrit 47.8 % (37-53); Lymphocytes # 2.5 10^3/uL (0.8-4.8); Lymphocytes % 33.1 %; Mean Corpuscular HGB Conc 32.6 g/dL (30-55); Mean Corpuscular Hemoglobin 30.6 pg (27-33); Mean Corpuscular Volume 93.7 fl (82-101); Mean Platelet Volume 10.4 fL (7.4-10.4); Monocytes # 0.9 10^3/uL (0.2-0.9); Neutrophils # 3.85 10^3/uL (1.8-7.7); Neutrophils % 50.9 %; Nucleated Red Blood Cells % 0 %; Platelet Count 189 10^3/cmm (157-399); White Blood Count 7.56 10^3/uL (3.29-11.43)
[2024-06-20 04:00] LABS: Alanine Aminotransferase 51 U/L (0-41); Albumin Level 3.7 g/dL (3.5-5.2); Alkaline Phosphatase 77 U/L (40-130); Anion Gap 14.1 (5-19); Aspartate Amino Transferase 60 U/L (0-40); Blood Urea Nitrogen 11 mg/dL (6-20); Calcium 8.7 mg/dL (8.5-10.5); Carbon Dioxide 23 mmol/L (22-29); Chloride 107 mmol/L (98-107); Globulin 2.9 g/dL (1.3-4.6); Glomerular Filtration Rate 86.4 mL/min (90-130); Glucose 120 mg/dL (65-115); Magnesium 2.2 mg/dL (1.7-2.3); Osmolality Calculated 291 mOsm/kg (285-295); Potassium 4.1 mmol/L (3.5-5.1); Sodium 140 mmol/L (136-145); Total Bilirubin 0.8 mg/dL (0.15-1.2); Total Protein 6.6 g/dL (6.6-8.7)
[2024-06-20] MEDS: sodium chloride 0.9% 1,000 ML 75 ML IV (06:08)
--- NOTE | 2024-06-20 07:01 | PC.RESP ---
pt refuses hospital cpap
--- NOTE | 2024-06-20 09:00 | PC.CHAP ---
Pastoral Care Encounter/Spiritual Assessment Type of Contact [] Declined program support specialist visit [] Patient/Family/Request visit [] Outpatient visit [] Follow-up visit [] Physician referral [] Code/Alert [x] Routine visit [] Staff referral [] Actively dying [] Patient sleeping [x] Family support [] [] Out of room [] Palliative care [] [] Receiving care in room [] Pre-surgical visit [] Trauma [] Long length of stay [] ICU visit [] Other: Relational/Emotional Strength [x] Patient feels connected with others/family/visitors/staff [] Distress [] Loneliness/isolation [] Abandonment Spirituality of Patient [x] Person of Elle [] Attends Advent of their Elle [x] Believes in Prayer [] Reads Bible or Judaism materials [] There are Spiritual issues to be addressed Business Systems Technician Interventions [x] Prayer [x] Active listening [] Non-anxious presence [x] Spiritual/emotional support [] Crisis/trauma care [] Spiritual counseling [] Bereavement support [] Provided bereavement packet [] Provided Bible/devotional materials [] Provided toy/stuffed animal, coloring book to patient or family member [] Provided Communion [] Anointing/[place] [] Salvation [x] Completed spiritual assessment [] Other: Impact on Illness or Injury [] Angry [] Fearful [] Anxious [] Often cries [] Exhaustion [] Unable to work [] Unable to attend religion [] Unable to walk/stand [] Unable to read [] Unable to drive [] Unable to eat/drink [] Unable to sleep [] Unable to be with family [] Patient intubated [] Other: Summary Time spent with patient 5 min
[2024-06-20] MEDS: metoprolol tartrate 25 mg Tablet PO (09:12)
[2024-06-20] MEDS: lisinopril 10 mg Tablet PO (09:12)
[2024-06-20] MEDS: aspirin 81 mg EC Tablet PO (09:12)
[2024-06-20] MEDS: clopidogrel 75 mg Tablet PO (09:12)
--- NOTE | 2024-06-20 10:00 | XACV_ITS ---
Exam Room: 2 Ht: 183 cm Wt: 122 kg BSA: 2.54 m2 Gender: Male : 1965 Any Known Allergies: Other Exam Priority: Routine Procedure(s): Procedure Description: Diagnostic procedure Procedure Description: Left Heart Catheterization Procedure Description: Left ventriculography Procedure Description: Coronary IVUS Procedure Description: Coronary Angiography Diagnostic Cath Status: Urgent Diagnostic Findings * No significant disease noted in the Left Main, Left Anterior Descending, Right, or Circumflex coronary arteries. 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 * Coronary angiography shows right dominance. Interventional Findings * Procedure detail: After diagnostic imaging, we proceeded with IVUS of mid LAD. XB guide catheter was used to engage left main artery. We then wired the LAD with runthrough guide wire. IVUS was performed that showed compression of mid LAD without evidence of significant plaque build up. 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 Conclusions 1. No significant disease noted in the Left Main, Left Anterior Descending, Right, or Circumflex coronary arteries. 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 2. IVUS showed signfiicant compression of mid LAD without significant plaque build up. 3. Normal left ventricular systolic function. Ejection fraction of 55%. Recommendations * Troponin elevation and chest pain secondary to MINOCA ([place] with normal coronary arteries). However found to have significant mid LAD myocardial bridging. We will plan on outpatient exercise stress test to assess for symptoms and EKG changes on exercise. Based on that referral to CT surgery . Case discussed with CT surgery at [place] ( Dr Doyle). * We will start dual antiplatelet therapy, amlodipine and beta alex. * Outpatient cardiology follow up in 2 weeks. Interventional RX Recommendation: medical therapy and/or counseling Diagnostic RX Recommendation: medical therapy and/or counseling Anticoagulation: Heparin Ventriculography Ejection Fraction: 55.0 % Pressures Phase:Rest AO : 94 / 74 ( 84 ) @ 10:23:00 AM 128 / 71 ( 93 ) @ 10:33:00 AM 129 / 72 ( 94 ) @ 10:33:00 AM 99 / 68 ( 83 ) @ 10:41:00 AM LV : 134 / -7 / 14 @ 10:32:00 AM 141 / -11 / 12 @ 10:33:00 AM 139 / -11 / 13 @ 10:33:00 AM Valves Phase:DefaultPhase AV : 12.0 @ 10:50:52 AM 12.0 @ 10:50:52 AM AV Mean Gradient: 19.0 @ 10:50:52 AM 19.0 @ 10:50:52 AM Clinical Evaluation EBL: 5mL-10mL Procedural Details Pre-Procedure Time Out. Identified patient by full name and date of as verbalized by the patient/guarantor. Does the consent match the physician's order: Yes. Accurate & Complete Informed Consent: Yes. Inpatient/Outpatient History & Physical on Chart: Yes. If H&P is completed, is and addenduem needed: No; If yes, is the addendum complete: N/A. Visualize and Verify Site with Patient/Guarantor: N/A. Relevant Radiology Images available: Yes. Pre-op teaching completed and patient verbalized understanding. The risks, benefits, and alternatives of sedation and/or procedure were discussed by physician. The patient agrees to continue. Procedure started. [facility] Clinical Fraility Score: 3: Managing Well. Knockdown Man Indications: ACS > 24 hours/NSTEMI. Chest Pain Symptom Assessment: Typical Angina Symptoms. Cardiovascular Instability: No. PERRLA. Strong, equal hand simulation technician bilaterally. Lungs clear x 5 lobes. IV Site on Arrival: 20 gauge in the left forearm. IV Fluids: 0.9% NaCl at KVO. 500 mL infused prior to chemical processing laborer. Pre Procedural Pulses: bilateral radial was 2+. Pre Procedural Pulses: bilateral dorsalis pedis was Doppled. Pre Procedural Pulses: bilateral posterior tibial was Doppled. Oxygen started at 2liters/min via nasal canula. right groin was prepped with chloroprep then draped in the usual sterile fashion. right radial was prepped with chloroprep then draped in the usual sterile fashion. Physician notified. Baseline sample Acquired. HR: 74 BPM. Patient's family in the chemical processing laborer waiting room. Dr. Pagan will update at the completion of the procedure. Equipment: 6F - Radial. Cardiac Cath Pack. ACIST Manifold Kit Model BT 2000. Heparinized Saline (2 units/mL), 1000 mL bag. Physician arrived. Physician scrubbed in. Immediate Pre-Procedure Time Out. Correct Patient: Yes; Correct Procedure: Yes; Correct Site: Yes; Correct Patient Position: Yes; Correct Supplies: Yes; Dried Flammable Prep: Yes; Blood Products Available: N/A;. Lidocaine 1% infiltrated to the right radial. Arterial access obtained. A 5 mauritian TIG catheter in over the exchange J wire. Multiple views taken of left coronary artery. Current diagnosis: NSTEMI. Catheter redirected to the RCA. Multiple views taken of right coronary artery. Catheter removed over the exchange J wire. EDP Sample taken: LV 134/-8,14; HR: 80 BPM; SpO2: 97%. LV gram performed in MARCIAL @ 10 mL/second for a total of 30 mL. EDP Sample taken: LV 141/-12,12; HR: 83 BPM; SpO2: 96%. Pullback taken: LV 139/-12,13; AO 128/71(93); Mean: 19mmHg, Peak to Peak: 12mmHg, SEP: 7sec/min; HR: 81 BPM; SpO2: 96%. Catheter removed over the exchange J wire. 6 mauritian XB 3.5 guide catheter was inserted over the exchange J wire. IVUS catheter was advanced over the Runthrough guidewire to the mid LAD. IVUS run of the Mid LAD performed performed. IVUS catheter out. Runthrough guidewire out. Guide catheter out over the exchange J wire. Dr. Pagan scrubbed out. A TR Band was successful obtaining hemostatsis at the Right Radial artery insertion site. Post Procedure: Pulses reassessed and unchanged. PERRLA. Strong, equal hand simulation technician bilaterally. No VTE prophylaxis required. Medication's Wasted: Lidocaine 1% = 18 mL. Medication's Wasted: Nitro = 49.8 mg. Medication's Wasted: Other = Fentanyl 50 mcg. Total IV fluids: 45 mL. Post-op diagnosis: Myocardial Bridging of the Mid LAD. Complications: none. Estimated blood loss: 5mL-10mL. Responsiveness - Normal response to verbal stimuli; alert and oriented, PERRLA. Airway - Unaffected, no intervention required; spontaneous ventilation. Circulation: W/N/L, pulses unchanged. Nausea/Vomiting: No. Procedure completed. Patient transferred by bed to 1st floor. Vital chart was stopped. Access Site Site: Right Radial artery Sheath Size: 6 Fr Hemostasis Method: TR Band Hemostasis Success: Successful Procedure Medications Start: 10:18 AM Stop: 10:18 AM Medication: Versed Amount: 1 mg Route: I.V. Start: 10:18 AM Stop: 10:18 AM Medication: Fentanyl Amount: 50 mcg Route: I.V. Start: 10:20 AM Stop: 10:20 AM Medication: Nitrogylcerin Amount: 200 mcg Route: I.A. Start: 10:22 AM Stop: 10:22 AM Medication: Angiomax (5mg/mL) Amount: 18 ml Route: I.V. bolus Start: 10:33 AM Stop: 10:33 AM Medication: Angiomax (5mg/mL) Amount: 42 ml/hr Route: I.V. drip Start: 10:35 AM Stop: 10:35 AM Medication: Versed Amount: 1 mg Route: I.V. I, the attending physician, have reviewed and verified all procedure medications. Yes, all medications given per verbal order History/Risk Factors Hypertension: Yes Dyslipidemia: Yes Peripheral Arterial Disease (PAD): No Myocardial Infarction (FL): No Obesity: Yes Renal Disease: No Tobacco Use: Never Prior Interventions PCI: No CABG: No Valve Surgery: No Report Signatures Finalized by Mynor Pagan MD on 06/25/2024 01:22 PM
--- NOTE | 2024-06-20 10:16 | W.PM.OPSUD ---
Surgery/Procedure H&P Update DATE OF PROCEDURE: June 20, 2024 DATE H&P PERFORMED: 06/19/24 H&P UPDATE INFORMATION: I have reviewed H&P completed within last 30 days, I have examined patient prior to procedure and No changes to prior documentation PREOP DIAGNOSIS: NSTEMI PRIMARY INDICATION FOR PROCEDURE: NSTEMI PLANNED PROCEDURE: Left heart cath with possible percutaneous coronary intervention PATIENT REASSESSED PRIOR TO SEDATION, WITH NO CHANGE NOTED: Yes PHYSICAL EXAM: alert, oriented x 3, clear to auscultation bilaterally and regular rate & rhythm AIRWAY EVAL/ANESTHESIA PLAN: normal airway, ASA III, Local Anesthesia, Risks, benefits & alternatives of sedation and/or procedure discussed and Patient agrees to continue as planned ADDITIONAL INFORMATION: Moderate sedation
--- NOTE | 2024-06-20 11:14 | PM.PROC ---
Procedure Note: Date of procedure: 06/20/24 Pre-procedure diagnosis: NSTEMI Post-procedure diagnosis: other (Mid LAD myocardial bridging) Procedure: Left heart cath: Left main artery is patent. LAD has significant mid vessel myocardial bridging. No severe stenosis. RCA is patent. We will manage medically for MINOCA/ Troponin elevation secondary to significant bridging. Dual antiplatelet therapy with aspirin and plavix Amlodipine and beta alex Will watch in hospital till tomorrow Performing Provider: Mynor Pagan Estimated blood loss (mL): 10 Complications: None Condition: stable Disposition: floor Coding Level of Care Code Acute Code for [facility] Fwd
--- NOTE | 2024-06-20 12:36 | P.PN_ITS ---
Subjective 2 Subjective: Seen this morning awaiting to go for coronary angiogram. Chest pain-free at this time. Family at bedside. Vitals/I&O/Wt Last Vital Signs Temp 97.9 F 06/20/24 11:07 Pulse 71 06/20/24 11:07 Resp 22 H 06/20/24 11:07 BP 101/68 06/20/24 11:07 Pulse Ox 93 06/20/24 11:07 O2 Del Method Room Air 06/20/24 11:07 06/19/24 06/20/24 06/20/24 22:59 06:59 14:59 Intake Total 895 / 895 Balance 895 / 895 Weight last 48 hrs Weight 119.748 kg Weight 122.47 kg Weight 120.202 kg Physical Exam 2 Narrative: Patient is chest pain free Obese male GCS 15 Nonfocal neuroexam Chest pain-free S1, S2 Hemodynamically stable Abdomen distended nontender No sign of heart failure Pleasant and cooperative Data 06/20/24 02:42 06/20/24 02:42 A&P Assessment and plan (1) Non-ST elevation CO (NSTEMI): (2) Hyperlipemia, mixed: (3) Polycythemia: (4) SHRAVAN (obstructive sleep apnea): Plan Non-STEMI Loaded with aspirin and Plavix Continue aspirin and Plavix maintenance dose Currently on Lovenox therapeutic regimen Started IV fluids to profile and contrast-induced nephropathy Patient is not diabetic check A1c and lipid panel Requested echo N.p.o. after midnight Plan for angiogram in the morning Currently chest pain-free Will use morphine and nitroglycerin on alternating basis Full code DVT prophylaxis COVID therapeutic Lovenox Hypertension: Will continue metoprolol added by cardiology today,, will need optimization of antihypertensive regimen for discharge Once he starts eating let [employer] know about alpha gal deficiency please SHRAVAN: Requested CPAP Patient is physically active 06/20/2024 -Patient is chest pain-free awaiting coronary angiogram today ? Continue aspirin Plavix atorvastatin ? Cardiology following. ? Further management decisions to be made after coronary angiogram today. Attestations 2 Medical Necessity Statement*: More than 2 midnights anticipated for management of non-STEMI Diagnoses Non-ST elevation CO (NSTEMI) I21.4 Hyperlipemia, mixed E78.2 Polycythemia D75.1 SHRAVAN (obstructive sleep apnea) G47.33
[2024-06-20] MEDS: enoxaparin 40 mg/0.4 mL Syringe SUBCUT (15:33)
[2024-06-20] MEDS: sodium chloride 0.9% 1,000 ML 50 ML IV (15:33)
[2024-06-20] MEDS: pantoprazole 40 mg SDV IVP (18:22)
[2024-06-20] MEDS: atorvastatin 40 mg Tablet 80 MG PO (20:35)
[2024-06-21 03:22] LABS: Basophils % 0.5 %; Eosinophils # 0.2 10^3/uL (0.0-0.8); Eosinophils % 3.1 %; Hematocrit 47.7 % (37-53); Lymphocytes # 2.3 10^3/uL (0.8-4.8); Lymphocytes % 29.1 %; Mean Corpuscular HGB Conc 32.9 g/dL (30-55); Mean Corpuscular Hemoglobin 30.9 pg (27-33); Mean Corpuscular Volume 93.9 fl (82-101); Mean Platelet Volume 10.3 fL (7.4-10.4); Monocytes % 12.4 %; Neutrophils # 4.26 10^3/uL (1.8-7.7); Neutrophils % 54.5 %; Nucleated Red Blood Cells % 0 %; Platelet Count 192 10^3/cmm (157-399); Red Blood Count 5.08 10^6/uL (3.85-5.65); White Blood Count 7.81 10^3/uL (3.29-11.43)
[2024-06-21 03:40] LABS: Anion Gap 14.1 (5-19); Blood Urea Nitrogen 15 mg/dL (6-20); Carbon Dioxide 24 mmol/L (22-29); Chloride 106 mmol/L (98-107); Glomerular Filtration Rate 68.5 mL/min (90-130); Glucose 125 mg/dL (65-115); Osmolality Calculated 292 mOsm/kg (285-295); Potassium 4.1 mmol/L (3.5-5.1); Sodium 140 mmol/L (136-145)
[2024-06-21 03:53] VITALS: BP 132/71; PULSE 84; RESP 14; TEMP 37; O2SAT 96
[2024-06-21 06:00] VITALS: PULSE 77
[2024-06-21 07:19] VITALS: BP 130/73; PULSE 69; RESP 18; TEMP 36.8; O2SAT 95
[2024-06-21 08:00] VITALS: BP 130/73; PULSE 69; RESP 18; TEMP 36.8
[2024-06-21] MEDS: clopidogrel 75 mg Tablet PO (08:20)
[2024-06-21] MEDS: lisinopril 10 mg Tablet PO (08:20)
[2024-06-21] MEDS: amlodipine 5 mg Tablet PO (08:20)
[2024-06-21] MEDS: metoprolol succinate ER (24 HR) 25 mg Tablet PO (08:20)
[2024-06-21] MEDS: aspirin 81 mg EC Tablet PO (08:20)
--- NOTE | 2024-06-21 08:31 | PM.PN ---
Subjective Subjective: Patient is doing well. no chest pain. Vitals/I&O/Wt Last Vital Signs Temp 98.3 F 06/21/24 07:19 Pulse 69 06/21/24 07:19 Resp 18 06/21/24 07:19 BP 130/73 06/21/24 07:19 Pulse Ox 95 06/21/24 07:19 O2 Del Method Room Air 06/21/24 07:19 06/20/24 06/21/24 06/21/24 22:59 06:59 14:59 Intake Total 1000 / 1000 200 / 1200 Balance 1000 / 1000 200 / 1200 Weight last 48 hrs Weight 264 lb Weight 264 lb Weight 270 lb Weight 265 lb Physical Exam Narrative: GENERAL: Patient is alert, awake and oriented x3. [] NECK: No jugular vein distension. [] HEENT: No cyanosis. No icterus. No pallor. [] HEART: Regular S1 and S2. No murmur, rub or gallop. [] LUNGS: Clear to auscultate bilaterally. [] CENTRAL NERVOUS SYSTEM: Grossly nonfocal. [] EXTREMITIES: Lower extremities with 1+ edema bilaterally. Data 06/21/24 02:24 06/21/24 02:24 A&P Assessment and plan (1) Non-ST elevation MS (NSTEMI): (2) Myocardial bridge: (3) Hyperlipemia, mixed: Plan Patient's troponin elevation likely secondary to significant myocardial bridge/MINOCA. We will medically treat with dual antiplatelet therapy with aspirin and Plavix, low-dose beta-alex and amlodipine 5 mg. Can stop lisinopril. Discussed case with Dr. Kwon, CT surgeon at [place]. He recommended outpatient exercise stress test to assess for significant exercise induced ischemia to guide future management of myocardial bridging. Echo showed normal LV systolic function. Thanks for involving us with care of this patient. Patient is stable to be discharged from cardiology standpoint. Please call with questions. Attestations Medical Necessity Statement*: Care expected to cross 2 midnights. Coding Level of Care Code Acute Code for [facility] Fwd Diagnoses Non-ST elevation MS (NSTEMI) I21.4 Myocardial bridge Q24.5 Hyperlipemia, mixed E78.2
--- NOTE | 2024-06-21 08:38 | PC.CHAP ---
Pastoral Care Encounter/Spiritual Assessment Type of Contact [] Declined competitive athlete visit [] Patient/Family/Request visit [] Outpatient visit [] Follow-up visit [] Physician referral [] Code/Alert [x] Routine visit [] Staff referral [] Actively dying [] Patient sleeping [x] Family support [] [] Out of room [] Palliative care [] [] Receiving care in room [] Pre-surgical visit [] Trauma [] Long length of stay [] ICU visit [] Other: Relational/Emotional Strength [x] Patient feels connected with others/family/visitors/staff [] Distress [] Loneliness/isolation [] Abandonment Spirituality of Patient [x] Person of Elle [] Attends Denominational of their Elle [x] Believes in Prayer [] Reads Bible or Jainism materials [] There are Spiritual issues to be addressed Lining Finisher Interventions [x] Prayer [x] Active listening [] Non-anxious presence [x] Spiritual/emotional support [] Crisis/trauma care [] Spiritual counseling [] Bereavement support [] Provided bereavement packet [] Provided Bible/devotional materials [] Provided toy/stuffed animal, coloring book to patient or family member [] Provided Communion [] Anointing/[place] [] Salvation [x] Completed spiritual assessment [] Other: Impact on Illness or Injury [] Angry [] Fearful [] Anxious [] Often cries [] Exhaustion [] Unable to work [] Unable to attend latter day [] Unable to walk/stand [] Unable to read [] Unable to drive [] Unable to eat/drink [] Unable to sleep [] Unable to be with family [] Patient intubated [] Other: Summary Time spent with patient 5 min
--- NOTE | 2024-06-21 09:43 | PM.DCS ---
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 He was to follow-up with cardiology as an outpatient and continue aspirin Plavix atorvastatin. He will be referred to [place] for further evaluation at a later time. Patient to follow-up with cardiology outpatient. Medical management for now. Physical Exam Narrative: Patient is chest pain free Obese male GCS 15 Nonfocal neuroexam Chest pain-free S1, S2 Hemodynamically stable Abdomen distended nontender No sign of heart failure Pleasant and cooperative Discharge Data Studies Completed and Pending Completed Studies During Hospitalization Category Date Time Status XR chest 1V portable [id number] Stat Exams 06/19/24 11:51 Completed CV. echo complete* [id number] Stat Ultrasound 06/19/24 16:30 Completed Pending at discharge Category Date Time Status [employer] request for service Routine Exams 06/20/24 10:00 Taken Radiology Impressions Chest X-Ray 06/19/24 11:51 Impression: Atherosclerosis. Laboratory Results WBC 7.81 10^3/uL (3.29-11.43) 06/21/24 02:24 RBC 5.08 10^6/uL (3.85-5.65) 06/21/24 02:24 Hgb 15.70 g/dL (11.27-16.99) 06/21/24 02:24 Hct 47.7 % (37-53) 06/21/24 02:24 MCV 93.9 fl (82-101) 06/21/24 02:24 MCH 30.9 pg (27-33) 06/21/24 02:24 MCHC 32.9 g/dL (30-55) 06/21/24 02:24 RDW 12.0 % (12.1-15.1) L 06/21/24 02:24 Plt Count 192 10^3/cmm (157-399) 06/21/24 02:24 MPV 10.3 fL (7.4-10.4) 06/21/24 02:24 Neut % (Auto) 54.5 % 06/21/24 02:24 Lymph % (Auto) 29.1 % 06/21/24 02:24 [place] % (Auto) 12.4 % 06/21/24 02:24 Eos % (Auto) 3.1 % 06/21/24 02:24 Baso % (Auto) 0.5 % 06/21/24 02:24 Neut # (Auto) 4.26 10^3/uL (1.8-7.7) 06/21/24 02:24 Lymph # (Auto) 2.3 10^3/uL (0.8-4.8) 06/21/24 02:24 [place] # (Auto) 1.0 10^3/uL (0.2-0.9) H 06/21/24 02:24 Eos # (Auto) 0.2 10^3/uL (0.0-0.8) 06/21/24 02:24 Baso # (Auto) 0.0 10^3/uL (0.0-0.1) 06/21/24 02:24 Nucleated RBC % (auto) 0 % 06/21/24 02:24 Nucleated RBCs # 0.0 /100WBC 06/21/24 02:24 D-Dimer 0.29 ug/mLFEU (0-0.59) 06/19/24 19:58 Sodium 140 mmol/L (136-145) 06/21/24 02:24 Potassium 4.1 mmol/L (3.5-5.1) 06/21/24 02:24 Chloride 106 mmol/L (98-107) 06/21/24 02:24 Carbon Dioxide 24 mmol/L (22-29) 06/21/24 02:24 Anion Gap 14.1 (5-19) 06/21/24 02:24 BUN 15 mg/dL (6-20) 06/21/24 02:24 Creatinine 1.1 mg/dL (0.7-1.2) 06/21/24 02:24 GFR Calculation 68.5 mL/min (90-130) L 06/21/24 02:24 Glucose 125 mg/dL (65-115) H 06/21/24 02:24 Estimat Average Glucose 134 06/19/24 19:58 Hemoglobin A1c 6.3 % (4.0-6.0) H 06/19/24 19:58 Calculated Osmolality 292 mOsm/kg (285-295) 06/21/24 02:24 Calcium 9.0 mg/dL (8.5-10.5) 06/21/24 02:24 Magnesium 2.2 mg/dL (1.7-2.3) 06/20/24 02:42 Total Bilirubin 0.8 mg/dL (0.15-1.2) 06/20/24 02:42 AST 60 U/L (0-40) H 06/20/24 02:42 ALT 51 U/L (0-41) H 06/20/24 02:42 Alkaline Phosphatase 77 U/L (40-130) 06/20/24 02:42 Troponin T Baseline 12 ng/L (0-15) 06/19/24 11:00 Troponin T 120 Minute 54.03 ng/L (0-15) H 06/19/24 13:15 Delta Troponin T 42.03 ABS# (0-10) H* 06/19/24 13:15 Troponin T Hi Sens 6Hr 326.1 ng/L (0-15) H 06/19/24 16:59 Troponin T Hi Sens 6Hr Delta 314.1 ng/L (0-12) H* 06/19/24 16:59 Total Protein 6.6 g/dL (6.6-8.7) 06/20/24 02:42 Albumin 3.7 g/dL (3.5-5.2) 06/20/24 02:42 Globulin 2.9 g/dL (1.3-4.6) 06/20/24 02:42 Triglycerides 329 mg/dL (0-150) H 06/19/24 19:58 Cholesterol 169 mg/dL (0-200) 06/19/24 19:58 LDL Cholesterol, Calc 72 mg/dL (50-129) 06/19/24 19:58 HDL Cholesterol 31 mg/dL (60-100) L 06/19/24 19:58 LDL/HDL Ratio 2.32 RATIO (0.00-3.22) 12/30/24 19:58 Cholesterol/HDL Ratio 5.45 mg/dL (1.0-5.00) H 06/19/24 19:58 Lipase 17 U/L (13-60) 06/19/24 11:00 Vitamin B12 319 pg/mL (232-1245) 06/19/24 19:58 TSH 2.79 uIU/mL (0.27-4.20) 06/19/24 11:00 Vitals Last Vital Signs Temp 98.3 F 06/21/24 07:19 Pulse 69 06/21/24 07:19 Resp 18 06/21/24 07:19 BP 130/73 06/21/24 07:19 Pulse Ox 95 06/21/24 07:19 O2 Del Method Room Air 06/21/24 07:19 Discharge Plan Discharge Patient Disposition: Home Condition: Stable Prescriptions: New atorvastatin 40 mg Tablet 80 mg PO BEDTIME Qty: 30 0RF clopidogrel 75 mg Tablet 75 mg PO DAILY Qty: 30 0RF amlodipine 5 mg Tablet 5 mg PO DAILY Qty: 30 0RF aspirin 81 mg Tablet,Delayed Release (Dr/Ec) 81 mg PO DAILY Qty: 30 0RF metoprolol succinate 25 mg Tablet Extended Release 24 Hr 25 mg PO DAILY Qty: 30 0RF Continued acetaminophen [Tylenol] 325 mg tablet 325 mg PO QID PRN (Reason: Pain) Held ibuprofen 200 mg tablet 200 mg PO Q6H PRN (Reason: Pain) Hold Instructions: see pcp Discharge Orders: Discharge Order (Routine); Ordered 06/21/24 Ordered By: Terrie Sutherland Referrals: Laverne Barron NP [Nurse Practitioner] - 06/28/24 3:00 pm Romana Shepherd FNP [Primary Care Provider] - Discharge Diet: Cardiac Discharge Activity: Limit activity as instructed Patient Instructions: Metoprolol (By mouth) (Lopressor, Toprol XL), Aspirin (By mouth), Amlodipine (By mouth), Atorvastatin (By mouth), Clopidogrel (By mouth) (Plavix), Opioid Safety, Post Angiogram Home Care Instructions Discharge Attestations Time Spent in Discharge Care*: greater than 30 min Quality Metrics Clinical Quality Measures [ No reported AMI, CVA or VTE this stay] Coding Level of Care Code Acute Code for [facility] Diagnoses Non-ST elevation NC (NSTEMI) I21.4 Myocardial bridge Q24.5 Hyperlipemia, mixed E78.2
[2024-06-21 11:14] VITALS: BP 130/73; PULSE 67; RESP 16; O2SAT 96
--- NOTE | 2024-06-21 11:15 | PC.NURSE ---
Patient discharged to home. Instruction provided regarding s/p [facility] site care and restrictions, new medications and follow up needs. Patient and spouse both verbalized complete understanding. Access site remains c,d,i without s/s of bleeding or hematoma formation observed. Patient denies pain to needs. No distress noted. Patient insisted on ambulating to private vehicle. Spouse by side.
== END 2024-06-21 11:17 | disposition home or self-care (01) | DRG 281 ==
LOC: ER 14:27 → CSU 15:05
PROVIDERS: Internal Medicine; Nurse Practitioner Family; Admitting Provider Internal Medicine; Emergency Provider Emergency Medicine; PCP Nurse Practitioner Family; Visit Provider Internal Medicine
PROC: B2111ZZ Fluoroscopy of Multiple Coronary Arteries using Low Osmolar Contrast (ICD-10-PCS; principal; 2024-06-20 09:45)
DX: I21.4 Non-ST elevation (NSTEMI) myocardial infarction (principal); Q24.5 Malformation of coronary vessels; E78.2 Mixed hyperlipidemia; I10 Essential (primary) hypertension; D75.1 Secondary polycythemia; G47.33 Obstructive sleep apnea (adult) (pediatric); Z86.16 Personal history of COVID-19; Z91.014 Allergy to mammalian meats; Z82.49 Family history of ischemic heart disease and other diseases of the circulatory system
CPT/HCPCS: 36415; 71045; 80048; 80053; 80061; 82607; 83036; 83690; 83735; 84443; 84484; 85025; 85378; 92978; 93005; 93306; 93458; 94664; 96372; 96374; 99152; 99153; 99285; C1753; C1769; C1887; C1894; J0583; J1650; J2250; J2470; J3010; J3490; J7030; Q9967

== ENCOUNTER → 2024-06-28 15:55 | Outpatient (BNVA) | payer BC, SELFPAY | PROVIDERS: PCP Nurse Practitioner Family; Visit Provider Nurse Practitioner Family | DX: E78.2 Mixed hyperlipidemia (principal) | CPT/HCPCS: 36415; 80048; 85025 ==

== ENCOUNTER 2024-07-14 07:13 | Outpatient (CLI) | payer BC, SELFPAY ==
[2024-07-14 07:24] VITALS: BMI 37.3
--- NOTE | 2024-07-14 07:27 | NMCV_ITS ---
NM shashank perf SPECT r/s* [id number] Ramona Gee Age: 58 Gender: M : 1965 Exam Date: 07/14/2024 07:27 Ordering Phys: Laverne Barron NP Technologist: SHAQUILLE Aden Exam Location: [facility] Indications: cp STRESS TEST Please see separate stress test report in [facility] for full findings IMAGE PROTOCOL Rest/Stress 1 Exercise Day Radiopharmaceutical Dose (mCi) Administration Site Administered by Rest: Tc-99m 10.5 IV Oly Costa, ZOOLOGY TECHNICAL OFFICER Sestamibi Stress:Tc-99m 33 IV Oly Montoyagle, ZOOLOGY TECHNICAL OFFICER Sestamibi Rest: 14-Jul-2024 60 Discovery 630 Stress: 14-Jul-2024 15 Discovery 630 Radiopharmaceutical was injected at 90 % maximum heart rate. Supine position only as patient was unable to lay prone. SPECT RESULTS Technical Quality: Good Raw Data Analysis: Normal Image Corrections: No attenuation or motion correction applied Summed Stress Score: 0 Summed Rest Score: 3 Summed Difference Score: 0 PERFUSION FINDINGS Large area of decreased tracer uptake noted in basal to distal anterior wall from the rest images which improved significantly over stress images suggestive of artifact. Large area of decreased tracer uptake noted in the inferior and inferolateral wall on the rest images which improved significantly over stress images suggestive of an artifact. Medium sized area of persistently decreased tracer uptake noted in basal to mid inferior and inferoseptal wall cannot rule out old myocardial infarction versus scarring. FUNCTIONAL RESULTS (calculated via Gated SPECT) Stress Image LV EF (%): 79 Stress EDV (mL):67 TID: 0.66 Stress ESV (mL):14 FUNCTIONAL FINDINGS: There is normal left ventricular systolic function. IMPRESSIONS This study is negative for ischemia, EKG segment will be documented separately. Marivel Colunga MD (Electronically Signed) Final Date: 18 July 2024 01:42 S
--- NOTE | 2024-07-14 07:27 | ECG_ITS ---
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 Baseline heart rate was 80 beats per minute. Baseline blood pressure was 129/87 millimeters of mercury. Target heart rate was 161 beats per minute. Maximum heart rate achieved was 155, which was 96% of the target heart rate. Maximum blood pressure was 180/100 millimeters of mercury. Total exercise time was 60 minutes. Maximum METs achieved was 7.0, maximum VO2 was 24.5. The reason for ending the test was maximum effort achieved. The patient complained of shortness of breath during the stress test, which then resolved at the end of the test. ELECTROCARDIOGRAM: BASELINE: Showed sinus rhythm, normal axis, no significant ST-T changes at the baseline noted. EXERCISE: At the peak exercise level, artifact noted it was not interpretable RECOVERY: During the recovery period, heart rate dropped appropriately. No significant ST-T changes in the recovery suggestive of ischemia noted. CONCLUSION: 1. Exercise capacity fair. 2. Heart rate response was tachycardic. 3. Blood pressure response was hypertensive. 4. Symptoms not suggestive of ischemia. 5. Electrocardiogram portion of the stress test was not suggestive of ischemia. Specifically and sensitivity of the EKG portion of the stress test will be low because of artifact Electronically Signed On 07-29-2024 20:57:20 DIRECTOR CARD by JOSE KOHLER [email or web address]
[2024-07-14 09:20] VITALS: BP 132/84; PULSE 68
== END 2024-07-14 07:14 | disposition home or self-care (01) ==
LOC: CDL 07:15
PROVIDERS: PCP Nurse Practitioner Family; Visit Provider Nurse Practitioner Family
DX: R07.9 Chest pain, unspecified (principal); R00.0 Tachycardia, unspecified; R93.89 Abnormal findings on diagnostic imaging of other specified body structures
CPT/HCPCS: 36415; 78452; 93017; A9500

== ENCOUNTER → 2024-08-07 09:01 | Outpatient (BNVA) | payer BC, SELFPAY | PROVIDERS: PCP Nurse Practitioner Family; Visit Provider Nurse Practitioner Family | DX: E78.2 Mixed hyperlipidemia (principal) | CPT/HCPCS: 80061 ==